=== PATIENT | male | born 1955 | race Caucasian/White ===

== ENCOUNTER → 2019-11-23 | Outpatient (CLI) | payer MEDICARE | END | disposition home or self-care (01) | LOC: RADPV 10:20 | PROVIDERS: ATTEND Specialist | DX: R16.0 Hepatomegaly, not elsewhere classified (principal); K80.20 Calculus of gallbladder without cholecystitis without obstruction; R94.5 Abnormal results of liver function studies; N28.1 Cyst of kidney, acquired | CPT/HCPCS: 76700 ==